=== PATIENT | female | born 1995 | race Caucasian/White ===

== ENCOUNTER → 2016-10-20 | Outpatient (CLI) | payer OTHER | LOC: COL.RAD 13:51 | DX: Q51.3 Bicornate uterus (principal); N13.30 Unspecified hydronephrosis; Q51.818 Other congenital malformations of uterus | CPT/HCPCS: A9585 ==

== ENCOUNTER → 2016-11-24 | Outpatient (CLI) | payer OTHER | LOC: COL.RAD 07:25 | DX: E23.6 Other disorders of pituitary gland (principal) | CPT/HCPCS: A9585 ==

== ENCOUNTER → 2016-12-10 | Outpatient (CLI) | payer OTHER | LOC: COL.LAB 12:56 | DX: E22.1 Hyperprolactinemia (principal) ==

== ENCOUNTER 2019-09-05 17:58 | Outpatient (CLI) | payer BC, OTHER ==
[~2019-09-05] VITALS: Ht 157.5 cm; Wt 64.1 kg
[2019-09-05] MEDS ORDERED: PRENATAL TABLET PO (18:23)
[2019-09-05 18:24] VITALS: BP 123/84; PULSE 76; TEMP 98.1
--- NOTE | 2019-09-05 18:30 | NUR ---
G2L0 at 36.2 gestation to LDR4 with c/o contractions since 1529. Patient changed into gown and wedged to left side in bed. EFMs explained and applied. FHR 120 bpm and reactive. Patient reports good movement. No leaking of fluid or vaginal bleeding. SVE FT/THI/HIGH. Plan of care reviewed. Dr. Dill on unit and notified.
[2019-09-05 19:00] VITALS: BP 123/71; PULSE 68
[2019-09-05 19:30] VITALS: BP 133/82; PULSE 74
[2019-09-05 19:48] LABS: PH 6 (5-8); URINE APPEARANCE Hazy; URINE BACTERIA Rare /hpf; URINE BILIRUBIN Negative (NEGATIVE); URINE BLOOD Negative (NEGATIVE); URINE COLOR Straw; URINE GLUCOSE Negative (NEGATIVE); URINE KETONE Negative (NEGATIVE); URINE LEUKOCYTE ESTERASE 1+ (NEGATIVE); URINE NITRATE Negative (NEGATIVE); URINE PROTEIN(semi-quant) Negative (NEGATIVE); URINE RBC 0-2 /hpf; URINE UROBILINOGEN Negative (NEGATIVE); URINE WBC 0-2 /hpf
[2019-09-05 20:00] VITALS: BP 132/86; PULSE 74
--- NOTE | 2019-09-05 20:20 | NUR ---
Contractions continue q3-5 minutes. Patient states that she is feeling the "tightening" of her belly and some mild "cramping" in her back, but is overall not uncomfortable with the contractions. Discharge instructions reviewed including labor precautions and resting and hydrating when at home. Patient and spouse state understanding and patient discharged home in stable condition.
[2019-09-05 21:18] LABS: COLLECTION METHOD CLEAN CATCH
== END 2019-09-05 20:25 | disposition home or self-care (01) ==
LOC: LDRO 17:58 → LDR 18:30 → LDRO 20:25
PROVIDERS: Obstetrics & Gynecology
DX: O62.9 Abnormality of forces of labor, unspecified (principal); Z3A.36 36 weeks gestation of pregnancy
CPT/HCPCS: OP

== ENCOUNTER 2019-09-08 23:18 | Inpatient (IN) | payer BC ==
[~2019-09-08] VITALS: Ht 156.2 cm; Wt 64.5 kg
[~2019-09-08 23:18] MED LIST: PRENATAL TABLET PO
--- NOTE | 2019-09-08 23:20 | NUR ---
G2L0. 36-5. Pt ambulatory to LDR 5 with spouse. Clean gown on. EFM and TOCO explained and applied. Pt states she has been having contractions since 1930 tonight, states they have gotten more intense this last hour and half, reports contractions every 3 mins lasting about a minute and a half. Pt denies leaking of fluids or vaginal bleeding. Pt states she has not felt baby move as much since contractions started tonight. Pt reports "double uterus and second cervix was removed 2 years ago." SVE FT/3. JAshley recheck behind this RN and agrees with SVE findings. Assessment completed and plan of care explained to pt and spouse. Pt denies questions. Call light within reach.
[2019-09-09] VITALS (24 sets, daily range): BP systolic 103–148; BP diastolic 59–101; PULSE 65–92; TEMP 97.7–98.4
--- NOTE | 2019-09-09 00:33 | NUR ---
SVE UNCHANGED. PT STATES CONTRACTIONS FEEL DIFFERENT THEN LAST TIME SHE WAS HERE AND DOES NOT FEEL COMFORTABLE GOING HOME AT THIS TIME. PT WANTING TO STAY ONE MORE HOUR AND RECHECK CERVIX ONCE MORE.
--- NOTE | 2019-09-09 01:15 | NUR ---
Pt states she is starting to feel labor shakes. SVE completed at this time. Difficult cervical exam, 2 RN's recheck. 0134: called and updated on pts status and requested at hospital for evaluation. Plan of care explained to pt and spouse who verbalize understanding. Denies questions at this time. 0143: IV started and labs obtained via IV site. LR bolus infusing without difficulties. Consents completed. 0153: at bedside. SVE per provider. Decision for due to breech presentation. Pt prepped for surgery. 0158: Pt off monitors and to bathroom. 0209: Pt off monitors and ambulatory to room.
[2019-09-09 02:06] LABS: BASO % 0.4 % (0.0-2.0); EOS % 0.5 % (0-4.0); GRAN # 4.8 (1.4-6.5); GRAN % 57.8 % (42.2-75.2); HEMOGLOBIN 12.3 g/dl (12.5-16.0); LYMPH # 2.6 (1.2-3.4); LYMPH % 31.4 % (20.0-51.0); MEAN CELL VOLUME 84 fl (80.0-100.0); MEAN CORPUSCULAR HEMOGLOBIN 29 pg (27.0-31.0); MEAN CORPUSCULAR HGB CONC 34 g/dl (33.0-37.0); MEAN PLATELET VOLUME 11.9 fl (7.4-10.4); MONO # 0.8 (0.1-0.6); MONO % 9.4 % (1.7-9.3); PLATELET COUNT 145 K/mm3 (130-400); RED BLOOD COUNT 4.26 M/mm3 (4.10-5.30); REDCELL DISTRIBUTION WIDTH-CV 13.5 % (11.5-14.5)
[2019-09-09 02:09] LABS: HEMATOCRIT 35.9 % (37.0-47.0)
--- NOTE | 2019-09-09 07:30 | NUR ---
Rests in bed, alert. Vital signs done. Assessment done, dressing dry and intact. Abdominal binder on. Denies any pain or discomfort at this time. Spouse at bedside. Ware catheter draining clear yellow urine.
--- NOTE | 2019-09-09 08:30 | NUR ---
baby, denies any needs at this time.
[2019-09-09] MEDS ORDERED: IBU800 M1 PO (08:34)
[2019-09-09] MEDS ORDERED: PERCOCET 325 MG1 TA2 PO (08:34)
[2019-09-10 02:00] VITALS: BP 123/78; PULSE 80; TEMP 98.1
--- NOTE | 2019-09-10 08:45 | NUR ---
Up in room, alert. Father of baby changing diaper. 0900 Percocet 5/325 mg two given per request.
--- NOTE | 2019-09-10 14:28 | NUR ---
Ambulates in the room. States just had shower. Request pain medication. Percocet 5/325 mg two given as ordered and per request.
[2019-09-10 16:15] VITALS: BP 135/87; PULSE 74; TEMP 98.1
[2019-09-10 20:00] VITALS: BP 130/80; PULSE 82; TEMP 98.8
[2019-09-11 07:30] VITALS: BP 134/90; PULSE 83; TEMP 99
== END 2019-09-11 13:35 | disposition home or self-care (01) | DRG 788 ==
LOC: LDRO 23:18 → LDR 09-09 01:46 → OB 09-09 01:52 → LDR 09-09 01:52 → OB 09-09 07:19
PROVIDERS: Obstetrics & Gynecology; ADMIT Student in an Organized Health Care Education/Training Program
PROC: 10D00Z1 Extraction of Products of Conception, Low, Open Approach (ICD-10-PCS; principal; 2019-09-09)
DX: O32.1XX0 Maternal care for breech presentation, not applicable or unspecified (principal); O34.03 Maternal care for unspecified congenital malformation of uterus, third trimester; Q51.3 Bicornate uterus; Z3A.36 36 weeks gestation of pregnancy; Z37.0 Single live birth; D35.2 Benign neoplasm of pituitary gland
CPT/HCPCS: J0690; J1885; J2270; J2370; J2405; J2590; J7120

== ENCOUNTER → 2020-01-08 | Outpatient (CLI) | payer OTHER, MEDICAID ==
[~2020-01-08] MED LIST changes: +IBU800 M1 PO; +PERCOCET 325 MG1 TA2 PO
== END ==
LOC: COL.RAD 01-02 09:00
DX: E22.1 Hyperprolactinemia (principal)
CPT/HCPCS: A9585